=== PATIENT | male | born 1970 | race Caucasian/White ===

== ENCOUNTER → 2016-10-23 | Outpatient (CLI) | payer OTHER ==
[~2016-10-23] MED LIST: COLACE-DPS100 MG PO; GLUCOPHAGE XR750 MG PO; KLOR-CON M2020 ME1 PO; LASIX DPS80 MG PO; LOPRESSOR DPS100 MG PO; MOBIC15 MG PO; MYCOSTATIN PWD15 GM TP; NORVASC5 MG PO; TYLENOL DPS325 MG PO; ULTRAM DPS50 MG PO; ZESTRIL DPS20 MG PO
== END | disposition home or self-care (01) ==
LOC: PTH.S 10:05
DX: E11.9 Type 2 diabetes mellitus without complications (principal)

== ENCOUNTER → 2017-01-07 | Outpatient (CLI) | payer OTHER | END | disposition home or self-care (01) | LOC: PTH.S 11:40 | DX: E11.9 Type 2 diabetes mellitus without complications (principal) ==